=== PATIENT | female | born 1955 | race Caucasian/White ===

== ENCOUNTER → 2022-03-03 | Day surgery (SDC) | payer OTHER ==
[~2022-03-03] VITALS: Ht 160 cm; Wt 74.8 kg
[~2022-03-03] MED LIST: HCTZ12.5 MG PO; LEVAQUIN500 MG PO; METRONIDAZOLE500 MG PO; SYNTHROID75 MCG PO; VALSARTAN-HCTZ1 EAC4 PO; VITAMIN D1000 UNI1 PO
[2022-03-03 07:30] LABS: HCT 39.4 % (37.0-47.0); HGB 13.1 g/dl (12.5-16.0); MCH 29.8 pg (25.0-31.0); MCHC 33.2 g/dL (32.0-36.0); MCV 89.7 fL (78.0-100.0); MPV 9.7 fL (6.0-9.5); RBC 4.39 M/uL (4.20-5.40); RDW 13.9 % (11.5-14.0); WBC 7.5 K/uL (4.0-10.5)
[2022-03-03 07:50] LABS: ALBUMIN 3.5 g/dL (3.4-5.0); BILIRUBIN - TOTAL 0.3 mg/dL (0.2-1.0); CREATININE 0.8 mg/dL (0.51-0.95); GLOBULIN (CALCULATION) 3.5 g/dL; POTASSIUM 3.3 mmol/L (3.5-5.1)
== END | disposition home or self-care (01) ==
LOC: FAS 06:52
PROVIDERS: Orthopaedic Surgery
DX: S83.231A Complex tear of medial meniscus, current injury, right knee, initial encounter (principal); S83.281A Other tear of lateral meniscus, current injury, right knee, initial encounter; M13.861 Other specified arthritis, right knee; M79.4 Hypertrophy of (infrapatellar) fat pad; M25.861 Other specified joint disorders, right knee; X58.XXXA Exposure to other specified factors, initial encounter; E03.9 Hypothyroidism, unspecified; Z88.2 Allergy status to sulfonamides; Z79.899 Other long term (current) drug therapy
CPT/HCPCS: 36415; 80053; J1100; J2250; J2405; J2704; J3010; J7120